=== PATIENT | male | born 1965 | race African-American/Black ===

== ENCOUNTER 2018-02-05 09:01 | Observation (INO) ==
[2018-02-05] MEDS ORDERED: Aspirin 325 MG Tablet PO ONE (09:18)
--- NOTE | 2018-02-05 09:23 | ED ---
HPI General Chief Complaint: Chest Pain Stated Complaint: ERT Time Seen by Provider: 02/05/18 09:18 Source: patient and family Mode of arrival: ambulatory Limitations: no limitations History of Present Illness HPI narrative: 52-year-old male patient with previous history of hypertension, not currently on any medications, has not obtained medical care for some time, states that over the last month he has been feeling well, intermittent dizziness , right-sided weakness, lives with his right leg, and over the last weeks he has been having chest discomfort intermittently, today found out that his son had and started getting worsening chest discomfort, currently rated at a 6 out of 10, shortness of breath, and was brought to the ER from within the hospital. He also complains of a headache currently. He is not on any blood pressure treatment. He has not been evaluated for this issue in the past. Complete Quality Measures for STEMI Alert Patients Related Data Home Medications Medication Instructions Recorded Confirmed No Known Home Medications 02/05/18 02/05/18 Allergies Allergy/AdvReac Type Severity Reaction Status Date / Time milk Allergy Severe Itching Verified 02/05/18 09:56 Review of Systems ROS: all other systems reviewed are negative [facility] Medical History Medical History HTN (hypertension) (Acute) Social History Social History Substance History: No History of Abuse Smoking Status: Current every day smoker Tobacco Type: Cigarettes How Often Do You Have a Drink Containing Alcohol: 2 to 3 times a week Recent Travel in [facility] [[email or web address] within the Last 8 Weeks: No Recent Out of Country Travel within the Last 8 Weeks: No Immunization History Tetanus Immunization: <5 Years Exam Narrative Exam Narrative: GENERAL: Well-developed middle-age -Citizen Of [place] male patient currently in mild distress. Awake and oriented 3. SKIN: Focused skin assessment warm/dry. HEAD: Atraumatic. Normocephalic. EYES: Pupils equal and round. No scleral icterus. No injection or drainage. ENT: No nasal bleeding or discharge. Mucous membranes pink and moist. NECK: Trachea midline. No JVD. CARDIOVASCULAR: Regular rate and rhythm. No murmur appreciated. RESPIRATORY: No accessory muscle use. Clear to auscultation. Breath sounds equal bilaterally. GASTROINTESTINAL: Abdomen soft, non-tender, nondistended. Hepatic and splenic margins not palpable. MUSCULOSKELETAL: No obvious deformities. No clubbing. No cyanosis. No edema. NEUROLOGICAL: Awake and alert. No obvious cranial nerve deficits. Motor grossly within normal limits. Normal speech. Right-sided pronator drift is notable in both the upper extremity and lower extremity. PSYCHIATRIC: Appropriate mood and affect; insight and judgment normal. Course Initial Documented Vital Signs Temperature 98.4 F 02/05/18 09:13 Pulse Rate 88 02/05/18 09:13 Respiratory Rate 15 02/05/18 09:13 Blood Pressure 174/107 H 02/05/18 09:13 Pulse Oximetry 96 02/05/18 09:13 Last Documented Vital Signs Temperature 98.4 F 02/05/18 09:13 Pulse Rate 83 02/05/18 09:19 Respiratory Rate 23 02/05/18 09:19 Blood Pressure 166/104 H 02/05/18 09:19 Pulse Oximetry 95 02/05/18 09:19 Medical Decision Making MDM Narrative Medical decision making narrative: EKG did not show any signs of acute ST changes. No significant dysrhythmias identified. Lab work was fairly unremarkable for electrolyte abnormalities. Chest x-ray was negative. CT the brain did not show any signs of acute intracranial processes. Patient has some right-sided leg weakness and the symptoms of been going on for over a month this point, this is not an acute process. He can follow-up for this with primary care doctor. However, chest discomfort is concerning, aspirin nitroglycerin has been given in the ER. His blood pressure is somewhat elevated as well. My plan would be to admit him at this point to the chest pain center for further evaluation of his heart. Differential Diagnosis Differential Diagnosis: Anxiety attack versus ACS versus dysrhythmias versus alcoholic gastritis versus hypertensive urgency versus acute CVA Lab Data Lab results reviewed: Yes I reviewed the patient's lab results. Result diagrams: 02/05/18 09:20 02/05/18 09:20 Lab Results 02/05/18 02/05/18 02/05/18 Range/Units 09:20 09:20 09:20 WBC 7.4 (4.0-11.0) th/mm3 RBC 4.69 (4.50-5.90) mil/mm3 Hgb 16.0 (13.0-17.0) gm/dL Hct 45.6 (39.0-51.0) % MCV 97.2 (80.0-100.0) fL MCH 34.2 H (27.0-34.0) pg MCHC 35.2 (32.0-36.0) % RDW 13.7 (11.6-17.2) % Plt Count 204 (150-450) th/mm3 MPV 8.6 (7.0-11.0) fL Neut % (Auto) 35.6 (16.0-70.0) % Lymph % (Auto) 51.6 H (9.0-44.0) % [place] % (Auto) 10.4 H (0.0-8.0) % Eos % (Auto) 1.9 (0.0-4.0) % Baso % (Auto) 0.5 (0.0-2.0) % Neut # (Auto) 2.6 (1.8-7.7) th/mm3 Lymph # (Auto) 3.8 (1.0-4.8) th/mm3 [place] # (Auto) 0.8 (0.0-0.9) th/mm3 Eos # (Auto) 0.1 (0.0-0.4) th/mm3 Baso # (Auto) 0.0 (0.0-0.2) th/mm3 WBC Differential . Differential Comment Auto diff final PT (9.8-11.6) sec INR Ratio APTT (24.3-30.1) sec Sodium (136-145) meq/L Potassium (3.5-5.1) meq/L Chloride (98-107) meq/L Carbon Dioxide (21.0-32.0) meq/L Anion Gap (5-15) meq/L BUN (7-18) mg/dL Creatinine (0.60-1.30) mg/dL Estimated GFR (>89) mL/min Random Glucose (74-106) mg/dL Calcium (8.5-10.1) mg/dL Total Bilirubin (0.2-1.0) mg/dL AST (15-37) U/L ALT (12-78) U/L Alkaline Phosphatase (45-117) U/L Troponin I (0.02-0.05) ng/mL B-Natriuretic Peptide 16 (0-100) pg/mL Total Protein (6.4-8.2) g/dL Albumin (3.4-5.0) g/dL Lipase Cancelled 02/05/18 02/05/18 Range/Units 09:20 09:20 WBC (4.0-11.0) th/mm3 RBC (4.50-5.90) mil/mm3 Hgb (13.0-17.0) gm/dL Hct (39.0-51.0) % MCV (80.0-100.0) fL MCH (27.0-34.0) pg MCHC (32.0-36.0) % RDW (11.6-17.2) % Plt Count (150-450) th/mm3 MPV (7.0-11.0) fL Neut % (Auto) (16.0-70.0) % Lymph % (Auto) (9.0-44.0) % [place] % (Auto) (0.0-8.0) % Eos % (Auto) (0.0-4.0) % Baso % (Auto) (0.0-2.0) % Neut # (Auto) (1.8-7.7) th/mm3 Lymph # (Auto) (1.0-4.8) th/mm3 [place] # (Auto) (0.0-0.9) th/mm3 Eos # (Auto) (0.0-0.4) th/mm3 Baso # (Auto) (0.0-0.2) th/mm3 WBC Differential Differential Comment PT 11.9 H (9.8-11.6) sec INR 1.2 Ratio APTT 25.6 (24.3-30.1) sec Sodium 139 (136-145) meq/L Potassium 4.1 (3.5-5.1) meq/L Chloride 104 (98-107) meq/L Carbon Dioxide 25.4 (21.0-32.0) meq/L Anion Gap 10 (5-15) meq/L BUN 15 (7-18) mg/dL Creatinine 1.02 (0.60-1.30) mg/dL Estimated GFR Greater than 89 (>89) mL/min Random Glucose 105 (74-106) mg/dL Calcium 8.8 (8.5-10.1) mg/dL Total Bilirubin 0.6 (0.2-1.0) mg/dL AST 55 H (15-37) U/L ALT 65 (12-78) U/L Alkaline Phosphatase 115 (45-117) U/L Troponin I Less than 0.02 L (0.02-0.05) ng/mL B-Natriuretic Peptide (0-100) pg/mL Total Protein 8.2 (6.4-8.2) g/dL Albumin 3.5 (3.4-5.0) g/dL Lipase 85 Imaging Data Attestation: I personally reviewed and interpreted this imaging study as follows : Radiologist's impression: Head CT 02/05/18 09:18 CONCLUSION: 1. No acute findings. Probable chronic white matter ischemic changes. . Chest X-Ray 02/05/18 09:19 CONCLUSION: Negative examination. Discharge Plan Discharge Disposition Patient Disposition: 30 Still Patient Discharge Condition Condition: Stable Discharge Details Anticipated Discharge Date: 02/05/18 Diagnosis: Chest pain Physicians Team ED Provider: Kaleb Gan Primary Care Provider: Primary Care FlakoiDebbie Rxs /Orders / Referrals /Forms Prescriptions: No Action No Known Home Medications RF: 0 Discharge Instructions Patient Printed Instructions: Chest Pain (ED) Discharge Interventions Interventions: Vital Signs Last Done: 02/05/18 09:13 Status ED Status: With Doctor
[2018-02-05 09:34] LABS: Baso % (Auto) 0.5 % (0.0-2.0); Eos # (Auto) 0.1 th/mm3 (0.0-0.4); Eos % (Auto) 1.9 % (0.0-4.0); Hematocrit 45.6 % (39.0-51.0); Lymph # (Auto) 3.8 th/mm3 (1.0-4.8); Lymph % (Auto) 51.6 % (9.0-44.0); Mean Corpuscular HGB Conc 35.2 % (32.0-36.0); Mean Corpuscular Hemoglobin 34.2 pg (27.0-34.0); Mean Corpuscular Volume 97.2 fL (80.0-100.0); Mean Platelet Volume 8.6 fL (7.0-11.0); Mono # (Auto) 0.8 th/mm3 (0.0-0.9); Mono % (Auto) 10.4 % (0.0-8.0); Neut # (Auto) 2.6 th/mm3 (1.8-7.7); Neut % (Auto) 35.6 % (16.0-70.0); Platelet Count 204 th/mm3 (150-450); Red Blood Count 4.69 mil/mm3 (4.50-5.90); Red Cell Distribution Width 13.7 % (11.6-17.2); White Blood Count 7.4 th/mm3 (4.0-11.0)
[2018-02-05 09:39] LABS: Activated Partial Thrombo Time 25.6 sec (24.3-30.1); INR 1.2 Ratio; Prothrombin Time 11.9 sec (9.8-11.6)
--- NOTE | 2018-02-05 09:48 | XR ---
EXAM DATE: 02/05/2018 9:38 AM EDT AGE/SEX: 52 years / Male INDICATIONS: Chest pain. CLINICAL DATA: This is the patient's initial encounter. Patient reports that signs and symptoms have been present for 1 day and indicates a pain score of 10/10. MEDICAL/SURGICAL HISTORY: Hypertension. Asthma. None. [place] [facility] [place]. . FINDINGS: A single AP view of the chest demonstrates the lungs to be symmetrically aerated without evidence of mass, infiltrate or effusion. The cardiomediastinal contours are unremarkable. Osseous structures a re intact. CONCLUSION: Negative examination. Electronically signed by: Dean Aranda MD 02/05/2018 9:47 AM EDT
[2018-02-05 09:56] LABS: Alanine Aminotransferase 65 U/L (12-78)
[2018-02-05 10:00] LABS: Alkaline Phosphatase 115 U/L (45-117); Total Protein 8.2 g/dL (6.4-8.2)
--- NOTE | 2018-02-05 10:04 | CT ---
EXAM DATE: 02/05/2018 9:51 AM EDT AGE/SEX: 52 years / Male INDICATIONS: Cephalgia. CLINICAL DATA: This is the patient's initial encounter. Patient reports that signs and symptoms have been present for 1 day and indicates a pain score of 2/10. MEDICAL/SURGICAL HISTORY: Hypertension. None. RADIATION DOSE: 34.87 CTDI (mGy) COMPARISON: No prior exams available for comparison. TECHNIQUE: CT of the head without contrast. Using automated exposure control and adjustment of the mA and/or kV according to patient size, radiation dose was kept as low as reasonably achievable to ob tain optimal diagnostic quality images. DICOM format image data is available electronically for revi ew and comparison. FINDINGS: Cerebrum: The ventricles are normal for age. No evidence of midline shift, mass lesion, hemorrhage or acute infarction. No extraaxial fluid collections are seen. Posterior Fossa: The cerebellum and brainstem are intact. The 4th ventricle is midline. The cerebe llopontine angle is unremarkable. Extracranial: The visualized portion of the orbits is intact. Skull: The calvaria is intact. No evidence of skull fracture. CONCLUSION: 1. No acute findings. Probable chronic white matter ischemic changes. . Electronically signed by: Simon San MD 02/05/2018 10:02 AM EDT
[2018-02-05 10:12] LABS: Albumin 3.5 g/dL (3.4-5.0); Anion Gap 10 meq/L (5-15); Blood Urea Nitrogen 15 mg/dL (7-18); Calcium 8.8 mg/dL (8.5-10.1); Carbon Dioxide 25.4 meq/L (21.0-32.0); Chloride 104 meq/L (98-107); Glomerular Filtration Rate Greater Than 89 mL/min (>89); Glucose,Random 105 mg/dL (74-106); Lipase 85 U/L (73-393); Sodium 139 meq/L (136-145)
[2018-02-05 10:21] LABS: Aspartate Aminotransferase 55 U/L (15-37); Potassium 4.1 meq/L (3.5-5.1)
--- NOTE | 2018-02-05 14:06 | P.HPCA ---
History of Present Illness Primary Care Physician: No Primary Care Physician Chief Complaint: Chest pain History of Present Illness: This is a 52-year-old male with history of tobacco abuse who presents to ED via private vehicle with family with complaint of having 2 weeks of intermittent right-sided chest discomfort. States it is in the right lower chest area. States it occurs with certain movements and will last for 2 or 3 minutes when it happens. Denies shortness of breath, nausea, or diaphoresis. It began to worsen this morning when he got bad news. States he found out that his son last evening at this hospital. Patient denies history of CAD. Please had a stress test in the past. Upon reviewing records he had a ETT in 2013 is nonischemic after walking 2 minutes and 35 seconds. There is family history of heart disease. States she has never been diagnosed hypertension but when his blood pressure has been checked usually elevated. States she has never taken medication. Denies recent illness. Denies fevers or chills. There is family history heart disease with both parents. Patient midst of the smoke about one half pack of cigarettes daily for about 30 years. Has occasional alcohol but admits to being a regular drinker until several months ago. - Diagnosis (1) Chest pain (2) Tobacco abuse (3) Hypertension Review of Systems General: Patient denies fevers, chills, and recent travel. HEENT: Patient denies headache, sore throat, difficulty swallowing. Cardiovascular: Has the chest discomfort as mentioned above. Denies sensation of heart beating rapidly or irregularly. No syncope. Denies diaphoresis. Respiratory: Denies shortness of breath or inspirational chest discomfort. Denies coughing wheezing or hemoptysis. GI: Patient denies nausea, vomiting, diarrhea, abdominal pain, bloody stools. Musculoskeletal: Patient denies joint pain or edema. Denies calf pain or edema. Neurovascular: Patient denies numbness, tingling, weakness in extremities. Denies headache. Endocrine: Denies polyuria and polydipsia. Hematologic: Denies easy bruising. Skin: Denies rash or itching. PMFSH - History History Provided By: Patient, Family Member - Medical History Medical History: Medical History (Last Reviewed 02/05/18 @ 09:23 by Kaleb Gan MD) HTN (hypertension) - Tobacco History Tobacco Use In Past 30 Days: Yes Smoking Status: Current every day smoker Tobacco Type: Cigarettes - Alcohol History How Often Do You Have a Drink Containing Alcohol: 2 to 3 times a week - Substance Use History Substance History: No History of Abuse - Travel History Recent Travel in the [place] Within the Last 8 Weeks: No Recent Travel Out of the Country Within the Last 8 Weeks: No - Immunization History Tetanus Immunization: <5 Years Medications and Allergies Active Medications: Active Medications Amlodipine Besylate (Norvasc) 5 mg PO DAILY CYN Clonidine HCl (Catapres) 0.1 mg PO Q6H PRN PRN Reason: SBP >165 OR DBP > 110 Ketorolac Tromethamine (Toradol Inj) 30 mg IV.PUSH ONCE ONE Stop: 02/05/18 14:31 Sodium Chloride (Ns Flush) 2 ml IV.FLUSH UNSCH PRN PRN Reason: FLUSH AFTER USING IV ACCESS Last Admin: 02/05/18 09:41 Dose: 2 ml Sodium Chloride (Ns Flush) 2 ml IV.FLUSH BID CYN Sodium Chloride (Ns Flush) 2 ml IV.FLUSH PRN PRN PRN Reason: FLUSH AFTER USING IV ACCESS Allergies Allergy/AdvReac Type Severity Reaction Status Date / Time milk Allergy Severe Itching Verified 02/05/18 09:56 Home Medications Medication Instructions Recorded Confirmed Type No Known Home Medications 02/05/18 02/05/18 History Exam Vital signs: Vital Signs 02/05/18 09:13 02/05/18 09:19 02/05/18 13:35 Temperature 98.4 F Pulse Rate 88 83 78 Respiratory Rate 15 23 26 H Blood Pressure 174/107 H 166/104 H 179/109 H Pulse Oximetry 96 95 95 Intake & Output 02/04/18 02/05/18 02/05/18 18:59 06:59 18:59 Weight 77.111 kg Narrative: GENERAL: This is a well-nourished, well-developed patient, in no apparent distress. Patient speaks in clear complete sentences. Patient is pleasant. His family is also at the bedside. HEENT: Head is atraumatic and normocephalic. Neck is supple without lymphadenopathy and trachea is midline. No JVD or carotid bruits. CARDIOVASCULAR: Regular rate and rhythm without murmurs, gallops, or rubs. RESPIRATORY: Clear to auscultation. Breath sounds equal bilaterally. No wheezes , rales, or rhonchi. Right lower chest wall is tender reproducing the discomfort that he has been having. No use of accessory muscles. GASTROINTESTINAL: Abdomen is nontender, nondistended. Abdomen soft. No obvious pulsatile mass or bruit. No CVA tenderness. Strong femoral pulses bilaterally. Normal bowel sounds in all quadrants. MUSCULOSKELETAL: Patient is moving upper and lower extremities freely. No calf tenderness or edema, no Homans sign. Strong pulses in upper and lower extremities. NEUROLOGICAL: Patient is alert and oriented. Cranial nerves 2-12 are grossly intact. No focal deficits and speech is clear. SKIN: No rash and turgor is normal. Results 02/05/18 09:20 02/05/18 09:20 Cardiac Enzymes 02/05/18 02/05/18 Range/Units 09:20 09:20 AST 55 H (15-37) U/L Troponin I Less than 0.02 L (0.02-0.05) ng/mL B-Natriuretic Peptide 16 (0-100) pg/mL Coagulation 02/05/18 02/05/18 Range/Units 09:20 09:20 PT 11.9 H (9.8-11.6) sec APTT 25.6 (24.3-30.1) sec B-Natriuretic Peptide 16 (0-100) pg/mL CBC 02/05/18 Range/Units 09:20 WBC 7.4 (4.0-11.0) th/mm3 RBC 4.69 (4.50-5.90) mil/mm3 Hgb 16.0 (13.0-17.0) gm/dL Hct 45.6 (39.0-51.0) % Plt Count 204 (150-450) th/mm3 Neut # (Auto) 2.6 (1.8-7.7) th/mm3 Lymph # (Auto) 3.8 (1.0-4.8) th/mm3 [place] # (Auto) 0.8 (0.0-0.9) th/mm3 Eos # (Auto) 0.1 (0.0-0.4) th/mm3 Baso # (Auto) 0.0 (0.0-0.2) th/mm3 Comprehensive Metabolic Panel 02/05/18 Range/Units 09:20 Sodium 139 (136-145) meq/L Potassium 4.1 (3.5-5.1) meq/L Chloride 104 (98-107) meq/L Carbon Dioxide 25.4 (21.0-32.0) meq/L BUN 15 (7-18) mg/dL Creatinine 1.02 (0.60-1.30) mg/dL Calcium 8.8 (8.5-10.1) mg/dL AST 55 H (15-37) U/L ALT 65 (12-78) U/L Alkaline Phosphatase 115 (45-117) U/L Total Protein 8.2 (6.4-8.2) g/dL Albumin 3.5 (3.4-5.0) g/dL Intake and Output 02/04/18 02/05/18 02/05/18 22:59 06:59 14:59 Other: Weight 77.111 kg Patient Weight 02/06/18 06:59 Weight 77.111 kg EKG interpretations - EKG EKG shows: sinus rhythm (Initial EKG is sinus rhythm rate of [address] segment depressions or elevations.) Caprini VTE Risk Assessment Caprini VTE Risk Assessment: No/Low Risk (score <= 1) Caprini Risk Assessment Model: Point Value = 1 Point Value = 2 Point Value = 3 Point Value = 5 Age 41-60 Minor surgery BMI > 25 kg/m2 Swollen legs Varicose veins or History of unexplained or recurrent spontaneous Oral contraceptives or hormone replacement Sepsis (< 1 month) Serious lung disease, including pneumonia (< 1 month) Abnormal pulmonary function Acute myocardial infarction Congestive heart failure (< 1 month) History of inflammatory bowel disease Medical patient at bed rest Age 61-74 Arthroscopic surgery Major open surgery (> 45 min) Laparoscopic surgery (> 45 min) Malignancy Confined to bed (> 72 hours) Immobilizing plaster cast Central venous access Age >= 75 History of VTE Family history of VTE Factor V Leiden Prothrombin [id number] Lupus anticoagulant Anticardiolipin antibodies Elevated serum homocysteine Heparin-induced thrombocytopenia Other congenital or acquired thrombophilia Stroke (< 1 month) Elective arthroplasty Hip, pelvis, or leg fracture Acute spinal cord injury (< 1 month) Prophylaxis Regimen: Total Risk Factor Score Risk Level Prophylaxis Regimen 0-1 Low Early ambulation 2 Moderate Order ONE of the following: *Sequential Compression Device (SCD) *Heparin 5000 units SQ BID 3-4 Higher Order ONE of the following medications: *Heparin 5000 units SQ TID *Enoxaparin/Lovenox 40 mg SQ daily (WT < 150 kg, CrCl > 30 mL/min) *Enoxaparin/Lovenox 30 mg SQ daily (WT < 150 kg, CrCl > 10-29 mL/min) *Enoxaparin/Lovenox 30 mg SQ BID (WT < 150 kg, CrCl > 30 mL/min) AND/OR *Sequential Compression Device (SCD) 5 or more Highest Order ONE of the following medications: *Heparin 5000 units SQ TID (Preferred with Epidurals) *Enoxaparin/Lovenox 40 mg SQ daily (WT < 150 kg, CrCl > 30 mL/min) *Enoxaparin/Lovenox 30 mg SQ daily (WT < 150 kg, CrCl > 10-29 mL/min) *Enoxaparin/Lovenox 30 mg SQ BID (WT < 150 kg, CrCl > 30 mL/min) AND *Sequential Compression Device (SCD) Assessment and Plan - Assessment (1) Chest pain Code(s): R07.9 - Chest pain, unspecified Status: Acute (2) Tobacco abuse Code(s): Z72.0 - Tobacco use Status: Acute (3) Hypertension Code(s): I10 - Essential (primary) hypertension Status: Acute - Plan * Chest pain: Patient has had atypical chest discomfort that seems musculoskeletal in nature. First troponin is normal. He will be evaluated by Dr. Kenn Small of cardiology in the chest pain center. He will undergo a stress test. Patient be discharged home if the stress test is nonischemic with instructions to follow-up with PCP and return to ED for interval issues. * Hypertension: We will start amlodipine. * Tobacco abuse: Patient counseled on importance of smoking cessation. Patient is stable at this time. He is agreeable to this plan.
[2018-02-05] MEDS: amLODIPine 5 MG Tablet PO SCH (14:07)
[2018-02-05] MEDS ORDERED: Ketorolac Inj 30 MG/ML (IVP) Vial IV.PUSH ONE (14:30)
--- NOTE | 2018-02-05 14:32 | ECG ---
Date Performed: 02/05/2018 Time Performed: 09:25:06 PTAGE: 52 years EKG: Sinus rhythm INFERIOR MYOCARDIAL INFARCTION ABNORMAL ECG Since the PREVIOUS TRACING , no significant change noted PREVIOUS TRACING 12/21/2012 05.55.54 DOCTOR: Carlos Castellano Interpretating Date/Time 02/05/2018 14:30:56
[2018-02-05] MEDS ORDERED: Dextrose 50% in Water 50 ML Vial IV.PUSH PRN (15:36)
[2018-02-05] MEDS ORDERED: Regadenoson Inj 0.4 MG/5 ML Syringe IV.PUSH ONE (15:36)
--- NOTE | 2018-02-05 16:22 | NM ---
EXAM DATE: 02/05/2018 4:14 PM EDT AGE/SEX: 52 years / Male INDICATIONS:Angina. . Substernal chest pain with dyspnea. CLINICAL DATA: This is the patient's initial encounter. Patient reports that signs and symptoms have been present for 1 day and indicates a pain score of 4/10. MEDICAL/SURGICAL HISTORY: Hypertension. None. COMPARISON: No prior exams available for comparison. DOSE: 8.5 mCi Tc 99m Myoview at rest 26.2 mCi [id number] at stress 0.4 mg Lexiscan STRESS SYMPTOMS: Shortness of breath, chest pressure. EJECTION FRACTION: 62 % TECHNIQUE: The patient underwent pharmacologic stress with infusion of prescribed dose. Continuous ECG tracing was monitored during stress. Gated SPECT imaging was performed after stress and conventi onal SPECT imaging was performed at rest. The examination was performed on a SPECT/CT scanner, both attenuation and non-corrected datasets were reviewed. FINDINGS: Distribution: The maximum perfused segment at stress is in the inferior wall. Perfusion Study: The pattern of perfusion at stress is within normal limits. Gated Study: There are intact wall motion and wall thickening without hypokinetic or dyskinetic segm ents. The ejection fraction is calculated at 62%. RISK CATEGORY: Intermediate (1-3 % Annual Mortality Rate) CONCLUSION: 1. Negative examination. Electronically signed by: Simon San MD 02/05/2018 4:21 PM EDT
[2018-02-05] MEDS: Enoxaparin Inj 40 MG/0.4 ML Syringe SQ SCH (16:34)
[2018-02-05] MEDS: Insulin NovoLOG Aspart Correctional Sugar Inj SQ SCH ×2 (16:34→21:18)
--- NOTE | 2018-02-05 17:24 | MR ---
EXAM DATE: 02/05/2018 5:18 PM EDT AGE/SEX: 52 years / Male INDICATIONS: CVA. Right sided weakness. CLINICAL DATA: This is the patient's initial encounter. Patient reports that signs and symptoms have been present for 1 day and indicates a pain score of 2/10. MEDICAL/SURGICAL HISTORY: Hypertension. None. COMPARISON: [facility] – [place], [place] HEAD W/O CONTRAST, 02/05/2018.. There is associated restricted diffusion. . TECHNIQUE: Multiplanar, multisequence examination of the brain was performed without contrast. FINDINGS: Cerebrum: A focus of abnormal FLAIR signal involving the left thalamus. A small focus of blooming ar tifact involving the nahid just to the left of midline at the level of the middle cerebellar peduncle. This shows a slight reduction in signal on the T1 and T2-weighted sequences. The ventricles are norm al for age. No evidence of midline shift, mass lesion, hemorrhage or acute infarction. No extraaxia l fluid collections are seen. The pituitary gland and suprasellar cistern are normal in configuratio n. White Matter: Confluent high FLAIR signal abnormality involving the periventricular white matter of both cerebral hemispheres.. Posterior Fossa: The cerebellum and brainstem are intact. The 4th ventricle is midline. The cerebel lopontine angle is unremarkable. The cerebellar tonsils are normal in position. Diffusion Imaging: There is a 1 cm focus of restricted diffusion involving the left thalamus. This s hows associated reduction in signal on the ADC map.. Extracranial: The visualized portions of the orbits and paranasal sinuses are unremarkable. CONCLUSION: 1. Acute nonhemorrhagic lacunar infarction involving the left thalamus. 2. Abnormal signal involving the nahid suggesting prior microhemorrhage. No acute hemorrhage observed . 3. Extensive chronic small vessel ischemic change. Electronically signed by: Dean Aranda MD 02/05/2018 5:22 PM EDT
--- NOTE | 2018-02-05 17:31 | MR ---
EXAM DATE: 02/05/2018 5:18 PM EDT AGE/SEX: 52 years / Male INDICATIONS: CVA. Right sided weakness. CLINICAL DATA: This is the patient's initial encounter. Patient reports that signs and symptoms have been present for 1 day and indicates a pain score of 1/10. MEDICAL/SURGICAL HISTORY: Hypertension. None. COMPARISON: [facility] – [place], [place] HEAD W/O CONTRAST, 02/05/2018. . TECHNIQUE: 3D [id number] MRA was performed. Source images, multiplanar STS MIP, and 3D volum e MIP reconstructions were reviewed. FINDINGS: The examination is degraded by motion. The basilar artery and both posterior cerebral arteries appear patent. Distal internal carotid arteries are patent. Irregularity in the middle cerebral arteries is believed to be related to motion artifact. Anterior cerebral arteries are patent. CONCLUSION: 1. Exam degraded by motion. Probably no hemodynamically significant stenosis. Electronically signed by: Simon San MD 02/05/2018 5:29 PM EDT
--- NOTE | 2018-02-05 18:15 | US ---
EXAM DATE: 02/05/2018 6:12 PM EDT AGE/SEX: 52 years / Male INDICATIONS: Dizziness. Headache. CLINICAL DATA: This is the patient's initial encounter. Patient reports that signs and symptoms have been present for 1 day and indicates a pain score of 0/10. MEDICAL/SURGICAL HISTORY: Hypertension. Chest pains. None. COMPARISON: No prior exams available for comparison. VELOCITY PARAMETERS: ICA/CCA Ratio: Right 0.9 , Left 1.1 ICA: Right 72.4 cm/sec, Left 77.9 cm/sec CCA: Right 78.9 cm/sec, Left 73.7 cm/sec ECA: Right 91.9 cm/sec, Left 72.5 cm/sec Vertebral: Right 70.2 cm/sec antegrade, Left 62.5 cm/sec antegrade FINDINGS: Right Carotid: Trace plaque bulb and proximal internal carotid artery..The waveforms are within norm al limits. Left Carotid: Trace plaque of the bulb and proximal internal carotid artery. The waveforms are withi n normal limits. Other: None. CONCLUSION: 1. Right Internal Carotid Artery: No significant plaque or narrowing. 2. Left Internal Carotid Artery: No significant plaque or narrowing. Electronically signed by: Jerman Fontenot MD 02/05/2018 6:14 PM EDT
[2018-02-05 21:40] LABS: Free T4 (Free Thyroxine) 1.04 ng/dL (0.76-1.46); Thyroid Stimulating Hormone 0.402 uIU/mL (0.358-3.740)
--- NOTE | 2018-02-05 22:06 | MB ---
cc: Kenn Clay MD DATE: 02/05/2018 HISTORY OF PRESENT ILLNESS: A 52-year-old, right-handed man with a history of hypertension who does not take an aspirin a day. About 2 weeks ago, he became weak on his right side and then about a week after that, became a little bit weaker and his foot was dragging. He came in the hospital and had a stress test here and saw cardiology. It was noted he was weak on the right side. He had some bilateral lower chest discomfort or tenderness. He passed out about a year ago, he tells me, but was never weak on the right side prior. He has never been seen by neurology here before. He was seen by cardiology back in 2012 for left-sided chest pain, history of hepatitis, hypertension and hyperlipidemia. They thought it was atypical chest pain. He evidently tested positive for cocaine at this time, although he denied any cocaine or drug use to me or IV drug use. His urine drug screen, however, was normal back in 2012. TSH was normal. Troponins were negative. Ammonia level 45. LDL cholesterol was 470. REVIEW OF SYSTEMS: He denied any diabetes, hypercholesterolemia, CA, CABG, stent, angioplasty, A-Fib, Coumadin, renal, hepatic or pulmonary disease, thyroid disease, lupus, ulcer, cancer, seizure, prior stroke. SOCIAL HISTORY: He is a smoker and I have asked him to quit. Occasionally, he has a drink but not every day. Denies any drug use. He lives by herself. FAMILY HISTORY: Negative for cancer or seizure. Positive stroke in both his parents. MEDICATIONS: It is unclear if he was taking other medicines at home, not listed here, but he denied any aspirin or blood thinners to me. CURRENT MEDICATIONS: He is on Norvasc, aspirin 325, atorvastatin, clonidine, enoxaparin, p.r.n. insulin. PHYSICAL EXAMINATION: VITAL SIGNS: Afebrile, 174/107 to 179/109, 78. NECK: There are no carotid bruits. HEART: Regular rate and rhythm. I do not detect a murmur. NEUROLOGIC: Pupils are equal. Visual jauregui are full. Extraocular movements intact without nystagmus. Face moves symmetrically with decreased sensation on the right. Tongue is midline. Speech is fluent. He is not aphasic. No slurred speech. He is about 4+/5 in the right upper extremity and right lower extremity, 5/5 in the left upper and lower extremities. DTRs are trace to absent throughout. Toes are downgoing bilaterally. Pinprick is diminished in the right face, arm and leg compared to the left. He is not ataxic on [id number]. LABORATORY DATA: CBC is normal. Basic metabolic profile is normal. Glucose 131. LFTs are essentially unremarkable. Troponin is negative. Albumin, lipase, coags normal. MRI of the brain shows an acute left thalamic infarct with a little bit of hemorrhage signal on the periphery of that. Also, he has had bilateral white matter infarcts in the past, somewhat longitudinal, left greater than right, and also an old left infarct in the nahid in the past and with some slight jerez artifact to rule out. An MRA of the rampart of Gutierrez looks to be right vertebral dominant. The basilar fills well. Carotid ultrasound was negative. EKG, inferior CA, abnormal but sinus rhythm. IMPRESSION: Left likely lacunar-type infarct with a lot of risk factors. It is okay to get his blood pressure down. This has been going on for 2 weeks. He needs to be on a statin, the aspirin 325. We can check some other blood work on him, but he will probably need some rehabilitation. We will do a Holter and also see what his echocardiogram shows. MD PATTI Morgna/lucille , 07:00 PM , 07:10 PM
[2018-02-05 22:23] LABS: Hepatitis A IgM Antibody Nonreactive (Nonreactive); Hepatitits B Surface Antigen Nonreactive (Nonreactive)
[2018-02-06 07:40] VITALS: RESP 16
[2018-02-06 07:55] LABS: Baso % (Auto) 0.1 % (0.0-2.0); Eos # (Auto) 0.1 th/mm3 (0.0-0.4); Eos % (Auto) 1.7 % (0.0-4.0); Hematocrit 42.4 % (39.0-51.0); Hemoglobin 14.2 gm/dL (13.0-17.0); Lymph # (Auto) 2.6 th/mm3 (1.0-4.8); Lymph % (Auto) 44.7 % (9.0-44.0); Mean Corpuscular HGB Conc 33.5 % (32.0-36.0); Mean Corpuscular Hemoglobin 33.2 pg (27.0-34.0); Mean Corpuscular Volume 99.1 fL (80.0-100.0); Mean Platelet Volume 8.7 fL (7.0-11.0); Mono # (Auto) 0.6 th/mm3 (0.0-0.9); Mono % (Auto) 9.5 % (0.0-8.0); Neut # (Auto) 2.6 th/mm3 (1.8-7.7); Platelet Count 166 th/mm3 (150-450); Red Blood Count 4.28 mil/mm3 (4.50-5.90); Red Cell Distribution Width 13.6 % (11.6-17.2); White Blood Count 5.8 th/mm3 (4.0-11.0)
[2018-02-06 08:13] LABS: INR 1.1 Ratio
[2018-02-06 08:54] LABS: Alanine Aminotransferase 54 U/L (12-78); Albumin 3.1 g/dL (3.4-5.0); Alkaline Phosphatase 96 U/L (45-117); Anion Gap 5 meq/L (5-15); Aspartate Aminotransferase 47 U/L (15-37); Blood Urea Nitrogen 11 mg/dL (7-18); Calcium 8.4 mg/dL (8.5-10.1); Carbon Dioxide 29.8 meq/L (21.0-32.0); Chloride 104 meq/L (98-107); Chol/HDL Ratio 2.58 Ratio; Cholesterol 139 mg/dL (120-200); Free T4 (Free Thyroxine) 0.97 ng/dL (0.76-1.46); Glomerular Filtration Rate Greater Than 89 mL/min (>89); Glucose,Random 85 mg/dL (74-106); HDL Cholesterol 53.7 mg/dL (40.0-60.0); LDL Cholesterol,Calculated 51 mg/dL (0-99); Magnesium 1.9 mg/dL (1.5-2.5); Phosphorus 2.9 mg/dL (2.5-4.9); Potassium 3.8 meq/L (3.5-5.1); Sodium 139 meq/L (136-145); Thyroid Stimulating Hormone 0.368 uIU/mL (0.358-3.740); Total Protein 7.1 g/dL (6.4-8.2); Triglycerides 173 mg/dL (42-150)
[2018-02-06] MEDS ORDERED: Aspirin 325 MG Tablet PO SCH (09:00)
[2018-02-06] MEDS: Insulin NovoLOG Aspart Correctional Sugar Inj SQ SCH ×3 (09:08→18:26)
[2018-02-06] MEDS: amLODIPine 5 MG Tablet PO SCH (09:13)
--- NOTE | 2018-02-06 09:30 | P.PNNEU ---
Subjective Subjective Comments: No acute events reported still co r chest pain sr Active Medications: Active Medications Amlodipine Besylate (Norvasc) 5 mg PO DAILY [facility] Last Admin: 02/06/18 09:13 Dose: 5 mg Aspirin (Aspirin) 325 mg PO DAILY [facility] Last Admin: 02/06/18 09:12 Dose: 325 mg Atorvastatin Calcium (Lipitor) 10 mg PO HS [facility] Last Admin: 02/05/18 21:18 Dose: 10 mg Clonidine HCl (Catapres) 0.1 mg PO Q6H PRN PRN Reason: SBP >165 OR DBP > 110 Last Admin: 02/05/18 21:18 Dose: 0.1 mg Dextrose (D50w Vial) 50 ml IV.PUSH UNSCH PRN PRN Reason: PER HYPOGLYCEMIA PROTOCOL Enoxaparin Sodium (Lovenox Inj) 40 mg SQ Q24H [facility] Last Admin: 02/05/18 16:34 Dose: 40 mg Glucagon (Glucagon Inj) 1 mg OTHER UNSCH PRN PRN Reason: for Hypoglycemia Protocol Insulin Aspart (Novolog Insulin Correctional Sugar Inj) 0 unit SQ [facility]; Protocol Last Admin: 02/06/18 09:08 Dose: Not Given Sodium Chloride (Ns Flush) 2 ml IV.FLUSH BID [facility] Last Admin: 02/06/18 09:13 Dose: 2 ml Sodium Chloride (Ns Flush) 2 ml IV.FLUSH PRN PRN PRN Reason: FLUSH AFTER USING IV ACCESS Allergies/Adverse Reactions: Allergies Allergy/AdvReac Type Severity Reaction Status Date / Time milk Allergy Severe Itching Verified 02/05/18 09:56 Physical Exam Vital signs: Vital Signs 02/05/18 13:35 02/05/18 20:00 02/05/18 22:17 Temperature 97.7 F Pulse Rate 78 73 Respiratory Rate 26 H 20 Blood Pressure 179/109 H 213/114 H Pulse Oximetry 95 96 96 02/06/18 00:00 02/06/18 03:45 02/06/18 07:39 Temperature 97.5 F L 98.3 F 98.0 F Pulse Rate 62 71 62 Respiratory Rate 16 17 16 Blood Pressure 184/108 H 177/117 H 156/101 H Pulse Oximetry 96 95 97 02/06/18 08:59 Temperature Pulse Rate Respiratory Rate Blood Pressure Pulse Oximetry 92 L Intake & Output 02/05/18 02/06/18 02/06/18 18:59 06:59 18:59 Intake Total 720 / 720 Balance 720 / 720 Weight 79.379 kg Intake: Oral 720 / 720 Other: # Voids 2 Date of Last Bowel Movement 02/06/18 # Bowel Movements 1 Weight On Admission 79.379 kg Narrative: minimal r hp voice nl Objective Laboratory Results - last 24 hr 02/05/18 02/05/18 02/05/18 09:20 09:20 09:20 WBC 7.4 RBC 4.69 Hgb 16.0 Hct 45.6 MCV 97.2 MCH 34.2 H MCHC 35.2 RDW 13.7 Plt Count 204 MPV 8.6 Neut % (Auto) 35.6 Lymph % (Auto) 51.6 H [place] % (Auto) 10.4 H Eos % (Auto) 1.9 Baso % (Auto) 0.5 Neut # (Auto) 2.6 Lymph # (Auto) 3.8 [place] # (Auto) 0.8 Eos # (Auto) 0.1 Baso # (Auto) 0.0 WBC Differential . Differential Comment Auto diff final ESR PT INR APTT Sodium Potassium Chloride Carbon Dioxide Anion Gap BUN Creatinine Estimated GFR POC Glucose Random Glucose Calcium Phosphorus Magnesium Total Bilirubin AST ALT Alkaline Phosphatase Troponin I B-Natriuretic Peptide 16 Total Protein Albumin Triglycerides Cholesterol LDL Cholesterol, Calc HDL Cholesterol Cholesterol/HDL Ratio Lipase Cancelled Vitamin B12 TSH Free T4 Hepatitis A IgM Ab Hep Bs Antigen Hep B Core IgM Ab Hep C IgG Ab 02/05/18 02/05/18 02/05/18 09:20 09:20 16:32 WBC RBC Hgb Hct MCV MCH MCHC RDW Plt Count MPV Neut % (Auto) Lymph % (Auto) [place] % (Auto) Eos % (Auto) Baso % (Auto) Neut # (Auto) Lymph # (Auto) [place] # (Auto) Eos # (Auto) Baso # (Auto) WBC Differential Differential Comment ESR PT 11.9 H INR 1.2 APTT 25.6 Sodium 139 Potassium 4.1 Chloride 104 Carbon Dioxide 25.4 Anion Gap 10 BUN 15 Creatinine 1.02 Estimated GFR Greater than 89 POC Glucose 131 H Random Glucose 105 Calcium 8.8 Phosphorus Magnesium Total Bilirubin 0.6 AST 55 H ALT 65 Alkaline Phosphatase 115 Troponin I Less than 0.02 L B-Natriuretic Peptide Total Protein 8.2 Albumin 3.5 Triglycerides Cholesterol LDL Cholesterol, Calc HDL Cholesterol Cholesterol/HDL Ratio Lipase 85 Vitamin B12 TSH Free T4 Hepatitis A IgM Ab Hep Bs Antigen Hep B Core IgM Ab Hep C IgG Ab 02/05/18 02/05/18 02/05/18 20:24 20:24 20:24 WBC RBC Hgb Hct MCV MCH MCHC RDW Plt Count MPV Neut % (Auto) Lymph % (Auto) [place] % (Auto) Eos % (Auto) Baso % (Auto) Neut # (Auto) Lymph # (Auto) [place] # (Auto) Eos # (Auto) Baso # (Auto) WBC Differential Differential Comment ESR 7 PT INR APTT Sodium Potassium Chloride Carbon Dioxide Anion Gap BUN Creatinine Estimated GFR POC Glucose Random Glucose Calcium Phosphorus Magnesium Total Bilirubin AST ALT Alkaline Phosphatase Troponin I B-Natriuretic Peptide Total Protein Albumin Triglycerides Cholesterol LDL Cholesterol, Calc HDL Cholesterol Cholesterol/HDL Ratio Lipase Vitamin B12 670 TSH 0.402 Free T4 1.04 Hepatitis A IgM Ab Nonreactive Hep Bs Antigen Nonreactive Hep B Core IgM Ab Nonreactive Hep C IgG Ab Nonreactive 02/06/18 02/06/18 02/06/18 07:15 07:15 07:15 WBC 5.8 RBC 4.28 L Hgb 14.2 Hct 42.4 MCV 99.1 MCH 33.2 MCHC 33.5 RDW 13.6 Plt Count 166 MPV 8.7 Neut % (Auto) 44.0 Lymph % (Auto) 44.7 H [place] % (Auto) 9.5 H Eos % (Auto) 1.7 Baso % (Auto) 0.1 Neut # (Auto) 2.6 Lymph # (Auto) 2.6 [place] # (Auto) 0.6 Eos # (Auto) 0.1 Baso # (Auto) 0.0 WBC Differential . Differential Comment Auto diff final ESR PT 11.0 INR 1.1 APTT Sodium 139 Potassium 3.8 Chloride 104 Carbon Dioxide 29.8 Anion Gap 5 BUN 11 Creatinine 0.89 Estimated GFR Greater than 89 POC Glucose Random Glucose 85 Calcium 8.4 L Phosphorus 2.9 Magnesium 1.9 Total Bilirubin 0.6 AST 47 H ALT 54 Alkaline Phosphatase 96 Troponin I B-Natriuretic Peptide Total Protein 7.1 D Albumin 3.1 L Triglycerides 173 H Cholesterol 139 LDL Cholesterol, Calc 51 HDL Cholesterol 53.7 Cholesterol/HDL Ratio 2.58 Lipase Vitamin B12 TSH 0.368 Free T4 0.97 Hepatitis A IgM Ab Hep Bs Antigen Hep B Core IgM Ab Hep C IgG Ab 02/06/18 08:20 WBC RBC Hgb Hct MCV MCH MCHC RDW Plt Count MPV Neut % (Auto) Lymph % (Auto) [place] % (Auto) Eos % (Auto) Baso % (Auto) Neut # (Auto) Lymph # (Auto) [place] # (Auto) Eos # (Auto) Baso # (Auto) WBC Differential Differential Comment ESR PT INR APTT Sodium Potassium Chloride Carbon Dioxide Anion Gap BUN Creatinine Estimated GFR POC Glucose 84 Random Glucose Calcium Phosphorus Magnesium Total Bilirubin AST ALT Alkaline Phosphatase Troponin I B-Natriuretic Peptide Total Protein Albumin Triglycerides Cholesterol LDL Cholesterol, Calc HDL Cholesterol Cholesterol/HDL Ratio Lipase Vitamin B12 TSH Free T4 Hepatitis A IgM Ab Hep Bs Antigen Hep B Core IgM Ab Hep C IgG Ab Review/Management - Review/Management Plan: imp need echo results today if neg could dc PT oob and if steady on feet could go home asa and statin fu holter
--- NOTE | 2018-02-06 10:31 | P.PN ---
Subjective Interval history: Follow up for right sided weakness, CVA. The patient is seen ambulating the hallway. He reports continued right sided weakness, unchanged. He has right foot drag with ambulation. Denies any headache, lightheadedness, dizziness, visual changes, chest pain, shortness of breath, or abdominal complaints. Physical Exam Vital signs: Vital Signs 02/05/18 13:35 02/05/18 20:00 02/05/18 22:17 Temperature 97.7 F Pulse Rate 78 73 Respiratory Rate 26 H 20 Blood Pressure 179/109 H 213/114 H Pulse Oximetry 95 96 96 02/06/18 00:00 02/06/18 03:45 02/06/18 07:39 Temperature 97.5 F L 98.3 F 98.0 F Pulse Rate 62 71 62 Respiratory Rate 16 17 16 Blood Pressure 184/108 H 177/117 H 156/101 H Pulse Oximetry 96 95 97 02/06/18 08:59 Temperature Pulse Rate Respiratory Rate Blood Pressure Pulse Oximetry 92 L Intake & Output 02/05/18 02/06/18 02/06/18 18:59 06:59 18:59 Intake Total 720 / 720 Balance 720 / 720 Weight 79.379 kg Intake: Oral 720 / 720 Other: # Voids 2 Date of Last Bowel Movement 02/06/18 # Bowel Movements 1 Weight On Admission 79.379 kg Narrative: GENERAL: Well-nourished, well-developed middle-aged AA male patient in [facility]. Ambulating. SKIN: Warm and dry. No rash. HEENT: Normocephalic. Atraumatic. Pupils equal and round. Mucous membranes pink and moist. CARDIOVASCULAR: Regular rate and rhythm. No murmur appreciated. RESPIRATORY: No accessory muscle use. Clear to auscultation. Breath sounds equal bilaterally. GASTROINTESTINAL: Abdomen soft, non-tender, nondistended. Normoactive bowel sounds x4. MUSCULOSKELETAL: No obvious deformities. Extremities without clubbing, cyanosis , or edema. Right lateral thorax mildly tender to palpation, no overlying rash/ erythema/edema/ecchymosis. NEUROLOGICAL: Awake and alert. No obvious cranial nerve deficits. 4/5 strength of RUE/RLE. 5/5 strength of LUE/LLE. Normal speech. No facial droop, lid lag , or tongue deviation. PSYCHIATRIC: Appropriate mood and affect; insight and judgment normal. Results - Labs CBC & Chem 7: 02/06/18 07:15 02/06/18 07:15 Laboratory Results - last 24 hr 02/05/18 02/05/18 02/05/18 16:32 20:24 20:24 WBC RBC Hgb Hct MCV MCH MCHC RDW Plt Count MPV Neut % (Auto) Lymph % (Auto) [place] % (Auto) Eos % (Auto) Baso % (Auto) Neut # (Auto) Lymph # (Auto) [place] # (Auto) Eos # (Auto) Baso # (Auto) WBC Differential Differential Comment ESR 7 PT INR Sodium Potassium Chloride Carbon Dioxide Anion Gap BUN Creatinine Estimated GFR POC Glucose 131 H Random Glucose Calcium Phosphorus Magnesium Total Bilirubin AST ALT Alkaline Phosphatase Total Protein Albumin Triglycerides Cholesterol LDL Cholesterol, Calc HDL Cholesterol Cholesterol/HDL Ratio Vitamin B12 TSH Free T4 Hepatitis A IgM Ab Nonreactive Hep Bs Antigen Nonreactive Hep B Core IgM Ab Nonreactive Hep C IgG Ab Nonreactive 02/05/18 02/06/18 02/06/18 20:24 07:15 07:15 WBC 5.8 RBC 4.28 L Hgb 14.2 Hct 42.4 MCV 99.1 MCH 33.2 MCHC 33.5 RDW 13.6 Plt Count 166 MPV 8.7 Neut % (Auto) 44.0 Lymph % (Auto) 44.7 H [place] % (Auto) 9.5 H Eos % (Auto) 1.7 Baso % (Auto) 0.1 Neut # (Auto) 2.6 Lymph # (Auto) 2.6 [place] # (Auto) 0.6 Eos # (Auto) 0.1 Baso # (Auto) 0.0 WBC Differential . Differential Comment Auto diff final ESR PT 11.0 INR 1.1 Sodium Potassium Chloride Carbon Dioxide Anion Gap BUN Creatinine Estimated GFR POC Glucose Random Glucose Calcium Phosphorus Magnesium Total Bilirubin AST ALT Alkaline Phosphatase Total Protein Albumin Triglycerides Cholesterol LDL Cholesterol, Calc HDL Cholesterol Cholesterol/HDL Ratio Vitamin B12 670 TSH 0.402 Free T4 1.04 Hepatitis A IgM Ab Hep Bs Antigen Hep B Core IgM Ab Hep C IgG Ab 02/06/18 02/06/18 07:15 08:20 WBC RBC Hgb Hct MCV MCH MCHC RDW Plt Count MPV Neut % (Auto) Lymph % (Auto) [place] % (Auto) Eos % (Auto) Baso % (Auto) Neut # (Auto) Lymph # (Auto) [place] # (Auto) Eos # (Auto) Baso # (Auto) WBC Differential Differential Comment ESR PT INR Sodium 139 Potassium 3.8 Chloride 104 Carbon Dioxide 29.8 Anion Gap 5 BUN 11 Creatinine 0.89 Estimated GFR Greater than 89 POC Glucose 84 Random Glucose 85 Calcium 8.4 L Phosphorus 2.9 Magnesium 1.9 Total Bilirubin 0.6 AST 47 H ALT 54 Alkaline Phosphatase 96 Total Protein 7.1 D Albumin 3.1 L Triglycerides 173 H Cholesterol 139 LDL Cholesterol, Calc 51 HDL Cholesterol 53.7 Cholesterol/HDL Ratio 2.58 Vitamin B12 TSH 0.368 Free T4 0.97 Hepatitis A IgM Ab Hep Bs Antigen Hep B Core IgM Ab Hep C IgG Ab - Imaging Impressions Carotid Doppler Study 02/05/18 00:00 CONCLUSION: 1. Right Internal Carotid Artery: No significant plaque or narrowing. 2. Left Internal Carotid Artery: No significant plaque or narrowing. Myocardial Perfusion Scan Nuc Med 02/05/18 13:27 CONCLUSION: 1. Negative examination. Head MRI 02/05/18 15:37 CONCLUSION: 1. Acute nonhemorrhagic lacunar infarction involving the left thalamus. 2. Abnormal signal involving the nahid suggesting prior microhemorrhage. No acute hemorrhage observed. 3. Extensive chronic small vessel ischemic change. Head MRA 02/05/18 15:37 CONCLUSION: 1. Exam degraded by motion. Probably no hemodynamically significant stenosis. Assessment and Plan - Plan 52-year-old male with history of tobacco use, hypertension, presents with a two- week history of right-sided weakness and right-sided chest pain. Atypical chest pain: Suspect musculoskeletal as the pain is worse with palpation and deep inspiration. -[facility], ACS ruled out with negative serial cardiac enzymes -CXR reviewed, no acute findings -Nuclear stress test negative -Check D-dimer -Monitor on telemetry -Pain improving Acute Ischemic CVA: with Right Sided Weakness [id number]. -Brain MRI reviewed, shows acute nonhemorrhagic lacunar infarction involving the left thalamus; Abnormal signal involving the nahid suggesting prior microhemorrhage; No acute hemorrhage observed -Head MRA reviewed, unremarkable -Carotid U/S with trace plaque, no stenosis -Neuro checks, monitor on telemetry -PT/OT eval, recommends HHC and cane -HgbA1c 5.7 -Started on aspirin and statin, discussed risks -Echocardiogram ordered -Holter in place -Neuro consulted, appreciate recommendation, discussed with rachele Adan to discharge on aspirin/statin if echo unremarkable Accelerated Hypertension with Hypertensive Urgency: BP elevated to 213/114. -Started on Norvasc, will increase to 10mg daily -Clonidine prn -Monitor BP, adjust antihypertensives as needed Tobacco Use: chronic -counseled on cessation DVT Prophylaxis: Lovenox sq Discharge Planning: Possible discharge later today if echo unremarkable and D-dimer negative. Case management consulted to assist with discharge planning. Discharge patient to home with [facility] Condition on discharge: Stable Heart Healthy Diet as tolerated Ad Carrie activity Rx written: Norvasc, Aspirin, Lipitor Follow-up with primary care physician and neurology
[2018-02-06 12:56] LABS: Hemoglobin A1c 5.7 % (4.3-6.0)
--- NOTE | 2018-02-06 13:03 | TR ---
Date Performed: 02/05/2018 Time Performed: 15:12:54 DOCTOR: Gary Warner DRUG LIST: CLINICAL HISTORY: REASON FOR TEST: REASON FOR ENDING: OBSERVATION: CONCLUSION: Lexiscan stress test was performed under standard four minute protocol. Radionuclide was injected one minute prior to ending the test. No electrocardiographic abormalities were present to suggest ischemia. Nuclear imaging and interpretation are pending. COMMENTS:
[2018-02-06 13:33] VITALS: TEMP 97.9; O2SAT 95
[2018-02-06] MEDS ORDERED: amLODIPine 5 MG Tablet PO ONE (14:01)
--- NOTE | 2018-02-06 14:06 | P.DCO ---
- Physical Therapy Order: Evaluate and treat, Improve ambulation, Strength and gait training - Home Health Nursing Order: Medical education, Nursing assessment with vital signs - Certification I have seen patient Delta Aguilera on 02/06/18. My clinical findings support the need for the requested home health care services because: Limited mobility due to disease progression, Deconditioned with increased weakness, Limited ability to care for self, High risk of falls I certify that my clinical findings support that this patient is homebound because: Unsteady gait/balance, Unsafe to leave home unassisted
[2018-02-06] MEDS: Enoxaparin Inj 40 MG/0.4 ML Syringe SQ SCH (15:53)
[2018-02-06 17:02] VITALS: BP 162/96; PULSE 75
--- NOTE | 2018-02-07 08:42 | HM ---
Date Performed: 02/05/2018 Time Performed: 21:37:00 HOOKUP DATE: 02/05/18 09:37:00 PM Fri ANALYSIS START TIME: 02/05/2018 9:42:00 PM ANALYSIS END TIME: 02/06/2018 8:04:51 PM PATIENT AGE: 52 PATIENT HEIGHT: 65 PATIENT WEIGHT: 175 DRUG LIST: ROOM F68 PATIENT DIAGNOSIS: CHEST PAIN TEST NARRATIVE: The patient's average heart rate was 72 BPM. Heart rates greater than 120 B PM were noted < 1% of the time. No episodes of bradycardia were noted. No pauses exceeding 2.0 s econds were noted. 8 ventricular ectopics, which represented < 1% of the total beat count, were n oted. The highest ventricular ectopic frequency occurred from 03:00 AM to 04:00 AM Sat. During this time 3 VE(s) occurred. Ventricular ectopics were observed as 8 isolated beat(s) only. No couplets or runs were noted. 24 supraventricular ectopics, which represented < 1% of the total beat count, were noted. The highest supraventricular ectopic frequency occurred from 11:00 AM to 12:00 PM Sat. During this time 8 SVE(s) occurred. No episodes of ST depression (defined as -1.0 mm or more) we re noted in channel 1. No episodes of ST depression (defined as -1.0 mm or more) were noted in chann el 2. No episodes of ST depression (defined as -1.0 mm or more) were noted in channel 3. NO DIARY EN TRIES WERE RECORDED BY PATIENT TEST INTERPRETATION: Sinus rhythm Rare premature atrial complexes Rare Short atrial runs Signed by : Karl Gilbert
[2018-02-07] MEDS ORDERED: amLODIPine 10 MG Tablet PO SCH (09:00)
--- NOTE | 2018-02-07 11:41 | ECHRPT ---
Indication: Hypertensive heart disease CONCLUSIONS The left ventricular systolic function is low normal with an estimated ejection fraction in the rang e of 50- 55%. Normal left ventricular size. Mild to moderate concentric left ventricular hypertrophy. Mitral annular calcification is present. Trace mitral valve regurgitation. Calcification of the left coronary cusp. There is trace tricuspid valve regurgitation. The estimated pulmonary arterial pressure is 46.5 mmHg. A prominent epicardial fat pad is present. BP: / HR: Rhythm: Sinus MEASUREMENTS (Male / Female) Normal Values Technical Quality:Fair 2D ECHO LV Diastolic Diameter PLAX 4.4 cm 4.2 - 5.9 / 3.9 - 5.3 cm LV Systolic Diameter PLAX 3.2 cm IVS Diastolic Thickness 1.5 cm 0.6 - 1.0 / 0.6 - 0.9 cm LVPW Diastolic Thickness 1.2 cm 0.6 - 1.0 / 0.6 - 0.9 cm LV Relative Wall Thickness 0.6 RV Internal Dim ED PLAX 3.7 cm LVOT Diameter 1.8 cm LA Systolic Diameter LX 3.2 cm 3.0 - 4.0 / 2.7 - 3.8 cm M-MODE Aortic Root Diameter MM 2.6 cm LA Systolic Diameter MM 4.2 cm LA Ao Ratio MM 1.6 AV Cusp Separation MM 1.6 cm DOPPLER AV Peak Velocity 153.0 cm/s AV Peak Gradient 9.4 mmHg LVOT Peak Velocity 114.0 cm/s LVOT Peak Gradient 5.2 mmHg AV Area Cont Eq pk 1.9 cm MV Area PHT 2.2 cm Mitral E Point Velocity 55.8 cm/s Mitral A Point Velocity 73.1 cm/s Mitral E to A Ratio 0.8 LV E' Lateral Velocity 8.8 cm/s Mitral E to LV E' Lateral Ratio 6.4 LV E' Septal Velocity 6.0 cm/s Mitral E to LV E' Septal Ratio 9.2 TR Peak Velocity 302.0 cm/s TR Peak Gradient 36.5 mmHg Right Atrial Pressure 10.0 mmHg Pulmonary Artery Systolic Pressu 46.5 mmHg Right Ventricular Systolic Press 46.5 mmHg FINDINGS LEFT VENTRICLE The left ventricular systolic function is low normal with an estimated ejection fraction in the rang e of 50- 55%. Normal left ventricular size. Mild to moderate concentric left ventricular hypertrophy. Doppler parameters are consistent with impaired left ventricular relaxtion (grade 1 diastolic dysfun ction). There is a prominent basal left ventricular septum with minimally increased gradients post-valsalva RIGHT VENTRICLE Normal right ventricular size and systolic function. LEFT ATRIUM The left atrial size is normal. RIGHT ATRIUM The right atrial size is normal. ATRIAL SEPTUM Normal atrial septal thickness without atrial level shunting by limited color doppler interrogation. AORTA The aortic root and proximal ascending aorta are normal in size on limited imaging. MITRAL VALVE Mitral annular calcification is present. Trace mitral valve regurgitation. AORTIC VALVE Trileaflet aortic valve. Calcification of the left coronary cusp. TRICUSPID VALVE Structurally normal tricuspid valve. There is trace tricuspid valve regurgitation. The estimated pulmonary arterial pressure is 46.5 mmHg. PULMONARY VALVE No pulmonary valve regurgitation or stenosis. VESSELS The inferior vena cava is normal in size. PERICARDIUM A prominent epicardial fat pad is present. Guzman Rocha MD (Electronically Signed) Final Date:07 February 2018 11:39
== END 2018-02-06 19:42 | disposition home health service (06) ==
LOC: NEPFCDU 09:01 → NEPC 09:01 → NEDA 09:01 → NEPFCDU 12:30
PROVIDERS: ADMIT Hospitalist; ATTEND Hospitalist